=== PATIENT | male | born 1990 | race Two or more races ===

== ENCOUNTER 2023-06-29 11:04 | Emergency (ER) | payer SELFPAY ==
[2023-06-29] MEDS ORDERED: Rocuronium 100 MG/10 ML MDV IV ONE (11:05)
[2023-06-29] MEDS ORDERED: HYDROmorphone 2 MG/ML SDV IV ONE (11:05)
[2023-06-29] MEDS ORDERED: Midazolam 1 MG/ML 2 ML SDV IV ONE (11:05)
[2023-06-29] MEDS ORDERED: Propofol 200 MG/20 ML SDV IV ONE (11:05)
[2023-06-29] MEDS ORDERED: Succinylcholine 200 MG/10 ML MDV IV ONE (11:05)
== END 2023-06-29 14:40 | disposition home or self-care (01) ==
LOC: FB.ED 11:04
DX: S43.014A Anterior dislocation of right humerus, initial encounter (principal); X50.0XXA Overexertion from strenuous movement or load, initial encounter; Y93.89 Activity, other specified
CPT/HCPCS: 01620; 23650; 73030-RT; 99283-25; J0330; J1170; J2250; J2704